=== PATIENT | male | born 1970 | race Caucasian/White ===

== ENCOUNTER 2023-04-18 18:06 | Inpatient (IN) | payer SELFPAY ==
[2023-04-18 18:08] VITALS: BP 174/116; PULSE 77; RESP 16; O2SAT 97; BMI 24.4
--- NOTE | 2023-04-18 18:19 | ED.C_ITS ---
HPI - Psych 2 General: Chief Complaint: Psychiatric Symptoms Stated Complaint: PSYCH EVAL Time Seen by Provider: 04/18/23 18:13 History of Present Illness: 52-year-old male presents emergency depa rtment via EMS personnel with complaints that he is having difficulty with recognizing his personalities. He states that although his name is Juliano he is currently a person named Juventino and Juventino provides protection to Juliano. The patient's did show up in the emergency department and provided additional information regarding his presentation she states they have been staying in a motel because of recent life events and she states he was sitting there with her and suddenly did not recognize who she was. When I asked the patient about his he states he does not know that he has a . Associated symptoms: Reports depression Review of Systems 2 General: Reports: 10 or more systems reviewed and unremarkable except in HPI and below Psych: Reports: depression and other (increased life stress) Physical Exam 2 Narrative: EXAM NARRATIVE: Constitutional: the patient appears well nourished and with normal development. Vital signs reviewed as documented. HENMT: Normocephalic, atraumatic. External ears normal appearance without drainage. Nose without drainage, normal appearance. Mucus membranes moist. Neck is supple, No jugular venous distension, trachea is midline, no appreciable carotid bruits. No lymphadenopathy. No meningeal signs. Flexion, extension and lateral rotation is without pain. Eyes: Pupils are equal, round, reactive to light and accommodation. No scleral icterus. Extra-ocular movement are intact. Thorax is symmetrical and with equal rise and fall with respirations. Resp: Lungs are clear to auscultation. No wheezes, rales, crackles or ronchi at present. Cardio: Regular rate and rhythm. Positive S1, S2. No appreciable murmurs, rubs or gallops. GI: Abdominal exam reveals normal bowel sounds to all quadrants. No organomegaly. No obvious palpable masses noted. No hepatomegally appreciated. Soft, non-tender to palpation. Extremity: Extremities are non-edematous and both femoral and pedal pulses are 2+ and equal bilaterally. Moves all extremities well, sensation in all extremities. Neuro: Alert and oriented x4, person, place, time and situation. Cranial nerves II through XII are grossly intact, there is no focal neurological deficits that I can appreciate at present. Motor strength in the upper and lower extremities are equal and bilateral 5/5. Psych: Cooperative, calm. Skin: No lesions, rashes. No gross abnormalities noted. Back: Symmetrical, no obvious deformity, No CVA tenderness Course 2 Vital Signs: Vital signs: Vital Signs Temperature 98.5 F 04/19/23 20:02 Pulse Rate 73 04/19/23 20:02 Respiratory Rate 18 04/19/23 20:02 Blood Pressure 192/104 04/19/23 20:02 Pulse Oximetry 98 04/19/23 20:02 Oxygen Delivery Me thod Room Air 04/19/23 20:02 MDM - Psych Medical Decision Making Physical exam completed, I will complete psychiatric medical clearance evaluation labs and contact the psychiatrist on-call to request admission to the neuropsychiatric unit for additional evaluation treatment and care. Lab Data I reviewed the patient's lab results. 04/19/23 09:10 04/19/23 09:10 Laboratory Results WBC 6.47 10^3/uL (3.29-11.43) 04/18/23 18:40 RBC 4.45 10^6/uL (3.85-5.65) 04/18/23 18:40 Hgb 15.30 g/dL (11.27-16.99) 04/18/23 18:40 Hct 44.7 % (37-53) 04/18/23 18:40 MCV 100.4 fl (82-101) 04/18/23 18:40 MCH 34.4 pg (27-33) H 04/18/23 18:40 MCHC 34.2 g/dL (30-55) 04/18/23 18:40 RDW 11.9 % (12.1-15.1) L 04/18/23 18:40 Plt Count 203 10^3/cmm (157-399) 04/18/23 18:40 MPV 9.6 fL (7.4-10.4) 04/18/23 18:40 Neut % (Auto) 49.7 % 04/18/23 18:40 Lymph % (Auto) 39.3 % 04/18/23 18:40 Andrew % (Auto) 6.8 % 04/18/23 18:40 Eos % (Auto) 1.9 % 04/18/23 18:40 Baso % (Auto) 1.7 % 04/18/23 18:40 Neut # (Auto) 3.22 10^3/uL (1.8-7.7) 04/18/23 18:40 Lymph # (Auto) 2.5 10^3/uL (0.8-4.8) 04/18/23 18:40 Andrew # (Auto) 0.4 10^3/uL (0.2-0.9) 04/18/23 18:40 Eos # (Auto) 0.1 10^3/uL (0.0-0.8) 04/18/23 18:40 Baso # (Auto) 0.1 10^3/uL (0.0-0.1) 04/18/23 18:40 Nucleated RBC % (auto) 0 % 04/18/23 18:40 Nucleated RBCs # 0.0 /100WBC 04/18/23 18:40 Sodium 145 mmol/L (136-145) 04/18/23 18:40 Potassium 3.7 mmol/L (3.5-5.1) 04/18/23 18:40 Chloride 103 mmol/L (98-107) 04/18/23 18:40 Carbon Dioxide 30 mmol/L (22-29) H 04/18/23 18:40 Anion Gap 15.7 (5-19) 04/18/23 18:40 BUN 8 mg/dL (6-20) 04/18/23 18:40 Creatinine 0.7 mg/dL (0.7-1.2) 04/18/23 18:40 GFR Calculation 118.4 mL/min (90-130) 04/18/23 18:40 Glucose 109 mg/dL (65-115) 04/18/23 18:40 Calculated Osmolality 299 mOsm/kg (285-295) H 04/18/23 18:40 Calcium 9.8 mg/dL (8.5-10.5) 04/18/23 18:40 Total Bilirubin 0.2 mg/dL (0.15-1.2) 04/18/23 18:40 AST 48 U/L (0-40) H 04/18/23 18:40 ALT 44 U/L (0-41) H 04/18/23 18:40 Alkaline Phosphatase 92 U/L (40-130) 04/18/23 18:40 Total Protein 7.4 g/dL (6.6-8.7) 04/18/23 18:40 Albumin 4.4 g/dL (3.5-5.2) 04/18/23 18:40 Globulin 3.0 g/dL (1.3-4.6) 04/18/23 18:40 TSH 0.51 uIU/mL (0.27-4.20) 04/18/23 18:40 Urine Color Yellow (Yellow) 04/18/23 18: Urine Appearance Clear (CLEAR) 04/18/23 18:33 Urine pH 6 (5-7) 04/18/23 18:33 Ur Specific [place] 1.015 (1.005-1.030) 04/18/23 18:33 Urine Protein Trace (Negative) 04/18/23 18: Urine Glucose (UA) Norm (Normal) 04/18/23 18: Urine Ketones 1+ (Negative) H 04/18/23 18:33 Urine Blood Neg (Negative) 04/18/23 18: Urine Nitrate Negative (Negative) 04/18/23 18: Urine Bilirubin Neg (Negative) 04/18/23 18:33 Urine Urobilinogen Norm mg/dL (Negative) 04/18/23 18:33 Ur Leukocyte Esterase Negative (Negative) 04/18/23 18:33 Urine RBC 0-4 /hpf (0-2) H 04/18/23 18:33 Urine WBC 0-4 /hpf (0-5) H 04/18/23 18:33 Ur Squamous Epith Cells 0-4 /hpf (0-5) H 04/18/23 18:33 Amorphous Sediment Not Reportable 04/18/23 18: Urine Bacteria Trace /hpf (NONE) 04/18/23 18:33 Urine Mucus 2+ /hpf 04/18/23 18:33 Salicylates < 0.3 mg/dL (3-10) L 04/18/23 18:40 Urine Opiates Screen Negative ng/mL (Negative) 04/18/23 18: Acetaminophen < 5.0 ug/mL (10-30) L 04/18/23 18:40 Ur Barbiturates Screen Negative ng/mL (Negative) 04/18/23 18: Ur Phencyclidine Scrn Negative ng/mL (Negative) 04/18/23 18:33 Ur Amphetamines Screen Negative ng/mL (Negative) 04/18/23 18:33 U Benzodiazepines Scrn Negative ng/mL (Negative) 04/18/23 18:33 Urine Cocaine Screen Negative ng/mL (Negative) 04/18/23 18:33 U Marijuana (THC) Screen Negative ng/mL (Negative) 04/18/23 18:33 Ethyl Alcohol 202 mg/dL (0-10) H 04/18/23 18:40 No radiology studies performed this visit Discharge Plan Discharge Patient Disposition: Admitted As Inpatient Admit Provider: Fredis Coleman Clinical Impression: Multiple identity disorder Condition: Stable Coding Level of Care Code ED Income Tax Expert for Jaime Vences
--- NOTE | 2023-04-18 18:20 | ECG_ITS ---
[facility] Test Date: 2023-04-18 Pat Name: Juliano Villasenor Department: Room: Gender: Male Social Sciences Lecturer: : 1970 Requested By: Bg Subramanian Order Number: [id number] Coyle MD: Beni Armenta M.D. Measurements Intervals [place] Rate: 81 P: 34 [place]: 143 QRS: -3 QRSD: 99 T: 46 QT: 381 QTc: 444 Interpretive Statements SINUS RHYTHM No previous ECG available for comparison Electronically Signed On 04-20-2023 7:56:24 AIR QUALITY SPECIALIST by Beni Armenta M.D. [id number]
[2023-04-18 18:42] LABS: Basophils # 0.1 10^3/uL (0.0-0.1); Basophils % 1.7 %; Eosinophils # 0.1 10^3/uL (0.0-0.8); Eosinophils % 1.9 %; Hematocrit 44.7 % (37-53); Lymphocytes # 2.5 10^3/uL (0.8-4.8); Lymphocytes % 39.3 %; Mean Corpuscular HGB Conc 34.2 g/dL (30-55); Mean Corpuscular Hemoglobin 34.4 pg (27-33); Mean Corpuscular Volume 100.4 fl (82-101); Mean Platelet Volume 9.6 fL (7.4-10.4); Monocytes # 0.4 10^3/uL (0.2-0.9); Monocytes % 6.8 %; Neutrophils # 3.22 10^3/uL (1.8-7.7); Neutrophils % 49.7 %; Nucleated Red Blood Cells % 0 %; Platelet Count 203 10^3/cmm (157-399); Red Blood Count 4.45 10^6/uL (3.85-5.65); Red Cell Distribution Width 11.9 % (12.1-15.1); White Blood Count 6.47 10^3/uL (3.29-11.43)
[2023-04-18 19:14] LABS: Alanine Aminotransferase 44 U/L (0-41); Albumin Level 4.4 g/dL (3.5-5.2); Alcohol Level 202 mg/dL (0-10); Alkaline Phosphatase 92 U/L (40-130); Anion Gap 15.7 (5-19); Aspartate Amino Transferase 48 U/L (0-40); Blood Urea Nitrogen 8 mg/dL (6-20); Calcium 9.8 mg/dL (8.5-10.5); Carbon Dioxide 30 mmol/L (22-29); Chloride 103 mmol/L (98-107); Glomerular Filtration Rate 118.4 mL/min (90-130); Glucose 109 mg/dL (65-115); Osmolality Calculated 299 mOsm/kg (285-295); Potassium 3.7 mmol/L (3.5-5.1); Sodium 145 mmol/L (136-145); Thyroid Stimulating Hormone 0.51 uIU/mL (0.27-4.20); Total Bilirubin 0.2 mg/dL (0.15-1.2); Total Protein 7.4 g/dL (6.6-8.7)
[2023-04-18 19:16] LABS: Acetaminophen < 5.0 ug/mL (10-30); Salicylate < 0.3 mg/dL (3-10)
[2023-04-18 19:50] LABS: Amphetamines Screen Urine Negative (Negative); Barbiturates Screen Urine Negative (Negative); Benzodiazepines Screen Urine Negative (Negative); Cocaine Screen Urine Negative (Negative); Opiate Screen Urine Negative (Negative); PCP Screen Urine Negative (Negative); THC Screen Urine Negative (Negative)
[2023-04-18 20:11] LABS: Add Urine Microscopic? YES; Bacteria Urine TRACE /hpf; Bilirubin Urine Neg (Negative); Blood Urine Neg (Negative); Glucose Urine UA Norm (Normal); Ketones Urine 1+ (Negative); Leukocyte Esterase Urine Negative (Negative); Mucus Urine 2+ /hpf; Nitrate Urine Negative (Negative); Protein Urine Trace (Negative); RBC Urine 0-4 /hpf (0-2); Specific Gravity, Urine 1.015 (1.005-1.030); Squamous Epithelial Cell Urine 0-4 /hpf (0-5); Urine Appearance Clear (CLEAR); Urine Color Yellow (Yellow); Urobilinogen Urine Norm (Negative); WBC Urine 0-4 /hpf (0-5); pH Urine 6 (5-7)
[2023-04-18 22:03] VITALS: BP 151/105; PULSE 82; RESP 16; O2SAT 97
[2023-04-18 22:07] VITALS: BP 140/84
--- NOTE | 2023-04-18 22:51 | PC.NURSE ---
Patient 96 hour Involuntary Hold Rights have been read to patient and a copy of the same has been given to him. Masseur/Masseuse Brigida Baldwin was present at bedside at the time of presentation.
[2023-04-18 22:52] VITALS: BP 140/84; PULSE 77; RESP 16; O2SAT 97
[2023-04-18] MEDS: trazodone 50 mg Tablet PO (23:18)
[2023-04-19 06:00] VITALS: RESP 16
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
[2023-04-19] MEDS: thiamine 100 mg Tablet PO (09:56)
[2023-04-19] MEDS: folic acid 1 mg Tablet PO (09:56)
[2023-04-19] MEDS: multivitamin therapeutic Tablet 1 TAB PO (09:56)
[2023-04-19 10:00] LABS: Basophils # 0.1 10^3/uL (0.0-0.1); Basophils % 1.3 %; Eosinophils # 0.2 10^3/uL (0.0-0.8); Hematocrit 42.3 % (37-53); Lymphocytes # 1.7 10^3/uL (0.8-4.8); Lymphocytes % 28.8 %; Mean Corpuscular HGB Conc 34.3 g/dL (30-55); Mean Corpuscular Volume 99.3 fl (82-101); Mean Platelet Volume 9.8 fL (7.4-10.4); Monocytes # 0.5 10^3/uL (0.2-0.9); Monocytes % 8.3 %; Neutrophils # 3.46 10^3/uL (1.8-7.7); Neutrophils % 57.8 %; Nucleated Red Blood Cells % 0 %; Platelet Count 170 10^3/cmm (157-399); Red Blood Count 4.26 10^6/uL (3.85-5.65); Red Cell Distribution Width 11.7 % (12.1-15.1)
[2023-04-19 10:21] LABS: Blood Urea Nitrogen 11 mg/dL (6-20); Calcium 9.8 mg/dL (8.5-10.5); Carbon Dioxide 28 mmol/L (22-29); Chloride 103 mmol/L (98-107); Glomerular Filtration Rate 118.4 mL/min (90-130); Glucose 93 mg/dL (65-115); Osmolality Calculated 289 mOsm/kg (285-295); Sodium 140 mmol/L (136-145)
[2023-04-19 14:00] VITALS: BP 163/98; PULSE 75; RESP 17; TEMP 36.6; O2SAT 99
[2023-04-19 14:59] LABS: Anion Gap 13.6 (5-19); Potassium 4.6 mmol/L (3.5-5.1)
[2023-04-19 20:02] VITALS: BP 192/104; PULSE 73; RESP 18; TEMP 36.9; O2SAT 98
[2023-04-19] MEDS: trazodone 50 mg Tablet PO (20:30)
[2023-04-20 06:00] VITALS: BP 170/94; PULSE 58; RESP 18; O2SAT 98
[2023-04-20] MEDS: folic acid 1 mg Tablet PO (09:19)
[2023-04-20] MEDS: thiamine 100 mg Tablet PO (09:19)
[2023-04-20] MEDS: multivitamin therapeutic Tablet 1 TAB PO (09:19)
[2023-04-20] MEDS: nicotine 4 mg lozenge MUCOUS MEM ×3 (10:13→18:21)
[2023-04-20 14:00] VITALS: BP 168/103; PULSE 71; RESP 16; TEMP 36.5; O2SAT 98
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
[2023-04-20] MEDS: trazodone 50 mg Tablet PO ×2 (20:07→21:05)
[2023-04-20 20:10] VITALS: BP 167/116; PULSE 70; RESP 20; TEMP 36.5; O2SAT 99
[2023-04-20] MEDS: acetaminophen 325 mg Tablet 650 MG PO (20:44)
[2023-04-21 06:00] VITALS: BP 155/90; PULSE 65; RESP 16; TEMP 36.4; O2SAT 98
[2023-04-21] MEDS: folic acid 1 mg Tablet PO (10:16)
[2023-04-21] MEDS: multivitamin therapeutic Tablet 1 TAB PO (10:16)
[2023-04-21] MEDS: thiamine 100 mg Tablet PO (10:17)
[2023-04-21] MEDS: nicotine 21 mg Patch 1 PATCH TRANSDERMA (11:21)
[2023-04-21 14:00] VITALS: BP 144/88; PULSE 78; RESP 16; TEMP 36.6; O2SAT 99
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
[2023-04-21] MEDS: trazodone 50 mg Tablet PO ×2 (20:08→21:56)
[2023-04-21 20:43] VITALS: BP 107/69; PULSE 71; RESP 17; TEMP 36.6; O2SAT 96
[2023-04-21] MEDS: OLANZapine 5 mg ODT PO (23:14)
[2023-04-22 06:00] VITALS: BP 119/78; PULSE 76; RESP 15; TEMP 36.3; O2SAT 97
[2023-04-22] MEDS: thiamine 100 mg Tablet PO (08:55)
[2023-04-22] MEDS: folic acid 1 mg Tablet PO (08:55)
[2023-04-22] MEDS: multivitamin therapeutic Tablet 1 TAB PO (08:55)
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
[2023-04-22] MEDS: nicotine 4 mg lozenge MUCOUS MEM (12:51)
[2023-04-22 14:00] VITALS: BP 163/95; PULSE 100; RESP 13; TEMP 36.3; O2SAT 99
[2023-04-22 14:38] VITALS: BP 119/78; PULSE 76; RESP 15; TEMP 36.3; O2SAT 97
== END 2023-04-22 14:46 | disposition home or self-care (01) | DRG 882 ==
LOC: ER 21:24 → NP 21:53
PROVIDERS: Admitting Provider Psychiatry & Neurology Psychiatry; Emergency Provider Internal Medicine; Visit Provider Psychiatry & Neurology Psychiatry
DX: F43.12 Post-traumatic stress disorder, chronic (principal); R45.851 Suicidal ideations; F43.0 Acute stress reaction; F32.A Depression, unspecified; F15.91 Other stimulant use, unspecified, in remission; F10.229 Alcohol dependence with intoxication, unspecified; Y90.7 Blood alcohol level of 200-239 mg/100 ml; F44.81 Dissociative identity disorder; Z62.810 Personal history of physical and sexual abuse in childhood; Z81.8 Family history of other mental and behavioral disorders; Z63.4 Disappearance and death of family member; Z62.812 Personal history of neglect in childhood
CPT/HCPCS: 36415; 80048; 80053; 80306; 80307; 81001; 84443; 85025; 93005; 97150; 97165; 99285